=== PATIENT | male | born 1940 | race Caucasian/White ===

== ENCOUNTER 2021-11-17 22:03 | Emergency (ER) | payer MEDICARE, MEDICAID | END 2021-11-17 22:41 | disposition home or self-care (01) | LOC: CSHERS 22:03 | DX: J02.8 Acute pharyngitis due to other specified organisms (principal); I10 Essential (primary) hypertension; M10.9 Gout, unspecified; K21.9 Gastro-esophageal reflux disease without esophagitis; I25.10 Atherosclerotic heart disease of native coronary artery without angina pectoris; E78.5 Hyperlipidemia, unspecified; I48.91 Unspecified atrial fibrillation; Z79.899 Other long term (current) drug therapy | CPT/HCPCS: 99283 ==

== ENCOUNTER 2024-12-10 09:26 | Outpatient (CLI) | payer MEDICARE, MEDICAID ==
[2024-12-10 10:00] LABS: #Basophils 0.03 10x3/uL (0.0-0.2); #Eosinophils 0.13 10x3/uL (0.0-0.5); #Monocytes 0.59 10x3/uL (0.0-1.1); #Neutrophils 3.28 10x3/uL (1.5-8.4); %Basophils 0.5 % (0.0-2.0); %Eosinophils 2.1 % (0.0-6.0); %Lymphocytes 35.7 % (18.0-47.0); %Monocytes 9.4 % (0.0-10.0); %Neutrophils 52.0 % (40.0-75.0); Hematocrit 43.4 % (38.8-50.0); Hemoglobin 14.5 g/dL (13.5-17.5); Mean Corpuscular Hemoglobin 31.6 pg (27.0-33.0); Mean Corpuscular Volume 94.6 fL (81.2-95.1); Platelet Count 172 10x3/uL (150-450); Red Blood Cell (RBC) Count 4.59 10x6/uL (4.32-5.72); White Blood Cell (WBC) Count 6.30 10x3/uL (3.5-10.5)
[2024-12-10 11:03] LABS: Anion Gap 12 mmol/L (10-20); BUN (Urea Nitrogen) 16 mg/dL (8.4-25.7); Calc. Creatinine Clearance 0 mL/min (70-130); Calcium 9.3 mg/dL (7.8-10.44); Carbon Dioxide 26 mmol/L (23-31); Chloride 103 mmol/L (98-107); Glucose 87 mg/dL (83-110); Potassium 4.4 mmol/L (3.5-5.1); Sodium 137 mmol/L (136-145)
== END 2024-12-10 09:27 | disposition home or self-care (01) ==
LOC: CSHLAB 09:26
PROVIDERS: ATTEND Specialist
DX: Z01.818 Encounter for other preprocedural examination (principal); K40.20 Bilateral inguinal hernia, without obstruction or gangrene, not specified as recurrent
CPT/HCPCS: 71046; 80048; 85025

== ENCOUNTER 2024-12-16 06:50 | Day surgery (SDC) | payer MEDICARE, MEDICAID ==
[2024-12-10 09:32] VITALS: BMI 25.4
[2024-12-16] MEDS ORDERED: Ketorolac Tromethamine 30 MG (1 mL) VIAL ONE (07:08)
[2024-12-16] MEDS ORDERED: Acetaminophen 500 MG TAB ONE (07:08)
[2024-12-16] MEDS ORDERED: CEFAZOLIN 2 GM VIAL ONE (08:10)
[2024-12-16] MEDS ORDERED: Bupivacaine/Epinephrine 0.25% 30 ML VIAL ONE (08:11)
[2024-12-16] MEDS ORDERED: Rocuronium Bromide 10 MG/ML (10ML VIAL) ONE (08:51)
[2024-12-16] MEDS ORDERED: Lidocaine 1% PF 5 ML VIAL ONE (08:51)
[2024-12-16] MEDS ORDERED: PROPOFOL 20 ML ONE (08:51)
[2024-12-16] MEDS ORDERED: PHENYLEPHRINE-NS 100 MCG/ML 10 ML SYRINGE ONE (09:42)
[2024-12-16] MEDS ORDERED: Ondansetron PF 4 MG/2 ML Vial ONE (10:33)
[2024-12-16] MEDS ORDERED: SUGAMMADEX SODIUM 200 MG/2 ML VIAL ONE (10:34)
[2024-12-16] MEDS ORDERED: HYDROmorphone 0.5 MG/0.5 ML SYRINGE ONE (11:43)
[2024-12-16] MEDS ORDERED: HYDROcodone/Acetaminophen 5/325 mg Tablet ONE (12:17)
== END 2024-12-16 13:44 | disposition home or self-care (01) ==
LOC: CSHSDC 06:50
PROVIDERS: ATTEND Specialist
PROC: 0YUA4JZ Supplement Bilateral Inguinal Region with Synthetic Substitute, Percutaneous Endoscopic Approach (ICD-10-PCS; principal; 2024-12-16)
DX: K40.20 Bilateral inguinal hernia, without obstruction or gangrene, not specified as recurrent (principal); Z95.1 Presence of aortocoronary bypass graft
CPT/HCPCS: 49650; 82962; 93005; C1781 ×2; J1171; J1885; J2405; J2704; J3010; S2900; 36416; 93010